=== PATIENT | female | born 1945 | race Caucasian/White ===

== ENCOUNTER 2016-10-07 10:33 | Emergency (ER) | payer MEDICARE, OTHER ==
[~2016-10-07] VITALS: Ht 160 cm; Wt 75.7 kg
--- NOTE | ~2016-10-07 | CR58 ---
[facility] A Service of [facility] & [facility] / [facility] RADIOLOGY TEXT RESULTS PATIENT: RICHA MARTE LOCATION: [facility] : 49 UNIT #: [id number] AGE: [address]: Earnestine Stephenson MD SEX: F ORDER DR: [id number] [facility] [address] [place], [place] [address] [id number] E MR#: [id number] Acc #: [id number] NAME: RICHA MARTE : 1945 SEX: F STUDY DATE/TIME: 10/07/2016 13:20 UNIT: [facility] ROOM: STUDY DESCRIPTION: CR Cervical Spine 2 or 3 Views Attending Physician: Earnestine Stephenson M.D. Ordering Physician: Earnestine Stephenson M.D. Primary Care Physician: Semaj Samson D.O. MEDICAL IMAGING REPORT This report is preliminary unless electronic signature is present STUDY Cervical spine series, 4 views; 10/07/2016. CLINICAL HISTORY Two day history of neck and upper back pain. FINDINGS Cervical spine alignment is normal. There is facet and discogenic degenerative change, but no acute abnormality. There is no fracture, prevertebral swelling or other acute finding. IMPRESSION Degenerative change without acute abnormality. Dictated by... Abilio Pulido M.D. THIS IS AN ELECTRONICALLY VERIFIED REPORT Abilio Pulido M.D. at 10/11/2016 9:08 AM DEBBY/john TD: 10/07/2016 18:08 JOB #: [id number] MEDICAL IMAGING REPORT Page 1 of 1 COPY
--- NOTE | ~2016-10-07 | EKG ---
PATIENT: RICHA MARTE UNIT #: [id number] Ventricular Rate: 86 BPM Atrial Rate: 86 BPM P-R Interval: 170 ms QRS Duration: 82 ms Q-T Interval: 362 ms QTC Calculation(Bezet): 433 ms P [place]: 29 degrees Calculated R [place]: -22 degrees Calculated T [place]: 3 degrees Diagnosis Line: Normal sinus rhythm Diagnosis Line: Low voltage QRS Diagnosis Line: Borderline ECG Diagnosis Line: When compared with ECG of 20-JAN-2014 11:38, Diagnosis Line: No significant change was found Diagnosis Line: Confirmed by MARCIANO PINEDA MD ([id number]) on 10/08/2016 Diagnosis Line: 5:03:21 PM INTERPRETING MD: EDWIN KEVIN
--- NOTE | ~2016-10-07 | CR243 ---
[facility] A Service of [facility] & [facility] RADIOLOGY TEXT RESULTS PATIENT: RICHA MARTE LOCATION: [facility] : 49 UNIT #: [id number] AGE: [address]: Earnestine Stephenson MD SEX: F ORDER DR: [id number] [facility] [address] [place], [place] [address] [id number] E MR#: [id number] Acc #: [id number] NAME: RICHA MARTE : 1945 SEX: F STUDY DATE/TIME: 10/07/2016 13:20 UNIT: [facility] ROOM: STUDY DESCRIPTION: CR Thoracic Spine 3 Views Attending Physician: Earnestine Stephenson M.D. Ordering Physician: Earnestine Stephenson M.D. Primary Care Physician: Semaj Samson D.O. MEDICAL IMAGING REPORT This report is preliminary unless electronic signature is present EXAM Thoracic spine, 3 views; 10/07/2016. HISTORY Two day history of neck and upper back pain. FINDINGS There is no fracture. Spine alignment is normal. There is osteopenia and degenerative change, but no acute abnormality. Dictated by... Abilio Pulido M.D. THIS IS AN ELECTRONICALLY VERIFIED REPORT Abilio Pulido M.D. at 10/11/2016 9:08 AM DEBBY/john TD: 10/07/2016 18:15 JOB #: [id number] MEDICAL IMAGING REPORT Page 1 of 1 COPY
--- NOTE | ~2016-10-07 | CR72 ---
[facility] A Service of [facility] & [facility] RADIOLOGY TEXT RESULTS PATIENT: RICHA MARTE LOCATION: [facility] : 49 UNIT #: [id number] AGE: [address]: Earnestine Stephenson MD SEX: F ORDER DR: [id number] [facility] [address] [place], [place] [address] [id number] E MR#: [id number] Acc #: [id number] NAME: RICHA MARTE : 1945 SEX: F STUDY DATE/TIME: 10/07/2016 13:19 UNIT: [facility] ROOM: STUDY DESCRIPTION: CR Chest Single View Portable Attending Physician: Earnestine Stephenson M.D. Ordering Physician: Earnestine Stephenson M.D. Primary Care Physician: Semaj Samson D.O. MEDICAL IMAGING REPORT This report is preliminary unless electronic signature is present EXAM Portable chest 1-view 10/07/2016 COMPARISON 01/20/2014. HISTORY Two day history of upper back pain. FINDINGS There is no infiltrate or effusion, pneumothorax or suspicious nodule. There is spinal degenerative change but the heart size is normal. No acute abnormality is seen. Dictated by... Abilio Pulido M.D. THIS IS AN ELECTRONICALLY VERIFIED REPORT Abilio Pulido M.D. at 10/11/2016 9:08 AM TEV/pcl TD: 10/07/2016 18:06 JOB #: [id number] MEDICAL IMAGING REPORT Page 1 of 1 COPY
[~2016-10-07 10:33] MED LIST: ALBUTEROL17 GM; ASPIRIN81 M2 PO; DIOVAN HCT 160-1 TAB; FERROUS GL325 ( 36 ) PO; KEPPRA100 MG/ML PO; LIPITOR PO; METFORMIN HCL500 M1 PO; METOPROLOL TAR25 MG PO; MOBIC PO; MULTIVITAMINS1 EAC2 PO; PLAVIX PO; TYLENOL325 M1 PO; ZESTORETIC 20-1 EAC1 PO
[2016-10-07 13:24] LABS: BASOPHIL% 0.1 % (0-2.5); DIFF IND NO; EOSINOPHIL% 0.4 % (0.0-7.0); HEMATOCRIT 40.7 % (35.0-45.0); HEMOGLOBIN 13.6 gm/dL (12.0-16.0); LYMPHOCYTE# 1.6 X10e3 (1.0-3.5); LYMPHOCYTE% 15.8 % (17.0-45.0); MEAN CORPUSCULAR HEMOGLOBIN 31.4 PG (28-34); MEAN CORPUSCULAR HGB CONC 33.4 g/dL (30-36); MEAN PLATELET VOLUME 9.2 FL (6.5-11.5); MONOCYTE# 0.7 X10e3 (0-1.0); MONOCYTE% 7.1 % (3.0-12.0); NEUTROPHIL# 7.8 X10e3 (1.5-7.1); NEUTROPHIL% 76.6 % (40-75); PLATELET COUNT 179 X10e3 (140-420); RED BLOOD COUNT 4.33 X10e (3.90-5.30); RED CELL DISTRIBUTION WIDTH 14.2 % (11.0-15.5); WHITE BLOOD COUNT 10.2 X10e3 (4.0-10.5)
[2016-10-07 13:37] LABS: POC - CKMB <1.0 ng/mL (0.0-7.9); POC - TROPONIN <0.05 ng/mL (<=0.05)
[2016-10-07 13:45] LABS: ALBUMIN SERUM 4.2 g/dL (3.5-5.0); BILIRUBIN, DIRECT 0.2 mg/dL (0.0-0.2); BILIRUBIN,INDIRECT 0.5 mg/dL (0.0-0.9); BILIRUBIN,TOTAL 0.7 mg/dL (0.2-2.0); BUN/CREATININE RATIO 22.22; CALCIUM SERUM 9.6 mg/dL (8.4-10.2); CREATININE SERUM 0.9 mg/dL (0.6-1.4); GLOM FILT RATE Estimated 65.3 mL/min (>60); POTASSIUM 3.9 mmol/L (3.5-5.1); PROTEIN TOTAL SERUM 7.1 g/dL (6.0-8.3)
== END 2016-10-07 15:46 | disposition home or self-care (01) ==
LOC: CED 10:33
PROVIDERS: Emergency Medicine
DX: M54.2 Cervicalgia (principal); M25.511 Pain in right shoulder; M25.512 Pain in left shoulder; E11.9 Type 2 diabetes mellitus without complications; I10 Essential (primary) hypertension; Z86.73 Personal history of transient ischemic attack (TIA), and cerebral infarction without residual deficits; Z90.49 Acquired absence of other specified parts of digestive tract; Z79.899 Other long term (current) drug therapy
CPT/HCPCS: 36415; 71010; 72040; 72072; 80048; 80076; 82550; 82553; 84484; 85025; 93005; 96374; 96375; 99283; J2270; J2405